=== PATIENT | female | born 2000 | race Caucasian/White ===

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

== ENCOUNTER 2018-01-20 12:44 | Outpatient (CLI) | END 2018-01-20 14:45 | disposition home or self-care (01) ==

== ENCOUNTER 2018-02-08 00:20 | Inpatient (IN) | END 2018-02-10 18:29 | disposition home or self-care (01) | DRG 775 ==

== ENCOUNTER 2018-07-28 05:48 | Emergency (ER) | payer MEDICAID ==
[~2018-07-28] VITALS: Ht 147.3 cm; Wt 42.5 kg
[~2018-07-28 05:48] MED LIST: CALC600T24 PO; PNV11TAB PO; PREN-93 PO
[2018-07-28 05:52] VITALS: Ht 147.3 cm; Wt 42.5 kg
[2018-07-28] MEDS ORDERED: IBUPROFEN 800 MG TAB PO ONE (06:30)
[2018-07-28 06:58] VITALS: BP 101/76; PULSE 66; RESP 15
[2018-07-28] MEDS ORDERED: NAPR-985 PO (07:48)
--- NOTE | 2018-07-28 13:16 | ERD ---
ER Documentation Chief Complaint Chief Complaint C/O MEDIAL BACK PAIN S/P SLIP AND FALL 5 DAYS AGO HPI 17-year-old female presenting with mid thoracic back pain after slip and fall on snow and ice 5 days ago. Patient has some pain with breathing. Denies any shortness of breath. Has not taken medications for symptoms. Denies any numbness or tingling to her arms or extremities. Denies other medical problems. NKDA. Surgical history denies. Social history denies ROS All systems reviewed and are negative except as per history of present illness. Medications Home Meds Active Scripts Naproxen* (Naprosyn*) 500 Mg Tablet, 500 MG PO BID PRN for PAIN AND/OR INFLAMMATION, #30 TAB Prov:ASHIA ERIC PA-C 07/28/18 Vit No.124/Iron/FA ( Vitamin Tablet) 1 Each Tablet, 1 EACH PO DAILY for 30 Days, TAB Prov:GINA APONTE MD 06/30/17 Reported Medications Calcium Carbonate* (Calcium Carbonate*) 600 MG Ca Tab, 600 MG PO DAILY, TAB 02/07/18 [id number] ( 19) 1 Each Tablet, 1 TAB PO DAILY, TAB 01/20/18 Allergies Allergies: Coded Allergies: No Known Allergy (Unverified , 02/07/18) PMhx/Soc Medical and Surgical Hx: pt denies Medical Hx, pt denies Surgical Hx History of Surgery: No Hx Neurological Disorder: No Hx Respiratory Disorders: No Hx Cardiac Disorders: No Hx Psychiatric Problems: No Hx Miscellaneous Medical Probl: No Hx Alcohol Use: No Hx Substance Use: No Hx Tobacco Use: No Smoking Status: Never smoker FmHx Family History: No diabetes, No coronary disease, No other Physical Exam Vitals Vital Signs Date Temp Pulse Resp B/P (MAP) Pulse Ox O2 O2 Flow FiO2 Time Delivery Rate 07/28/18 66 15 101/76 96 Room Air 06:58 (84) 07/28/18 98.7 74 19 119/71 98 05:52 (87) Physical Exam GENERAL: The patient is well-appearing, well-nourished, in no acute distress CHEST: Clear to auscultation bilaterally. There are no rales, wheezes or rhonchi. HEART: Regular rate and rhythm. No murmurs, clicks, rubs or gallops. BACK: No midline or flank tenderness. Tender palpation over mid thoracic with no bony step-offs felt along the midline spine. Results 24 hrs Current Medications Medications Dose Sig/Brad Start Time Status Last (Trade) Ordered Route PRN Stop Time Admin Dose Reason Admin Ibuprofen 800 mg ONCE ONCE 07/28/18 DC 07/28/18 (Motrin) PO 06:30 07/28/18 06:21 06:31 Procedures/MDM DIAGNOSTIC IMAGING REPORT Patient: RABIA HILL : 2000 Age: 17 Sex: F MR #: [id number] DOS: 07/28/18 0612 Ordering MD: ISABELLA ERIC PA-C Location: [facility] Room/Bed: PROCEDURE: XR thoracic Spine. CLINICAL INDICATION: back pain TECHNIQUE: AP, lateral and swimmer's views of the thoracic spine were obtained. COMPARISON: No prior studies are available for comparison. FINDINGS: There is normal vertebral mineralization and alignment. No acute fracture or subluxation is identified. Small anterior osteophytes are seen in the mid to lower thoracic spine. The soft tissues appear normal. IMPRESSION: Small anterior osteophytes are seen in the mid to lower thoracic spine. MDM: 17-year-old female presenting with back pain. I have low suspicion for acute fracture dislocation. I have low suspicion for tendon or ligament rupture. Patient has contusion and is treated with supportive medications. Patient is told symptoms change or worsen to return to the ER immediately. All questions answered at discharge Departure Diagnosis: Primary Impression: Back pain Condition: Stable Patient Instructions: Back Pain (Acute Or Chronic) Referrals: [facility] YOU HAVE RECEIVED A MEDICAL SCREENING EXAM AND THE RESULTS INDICATE THAT YOU DO NOT HAVE A CONDITION THAT REQUIRES URGENT TREATMENT IN THE EMERGENCY DEPARTMENT. FURTHER EVALUATION AND TREATMENT OF YOUR CONDITION CAN WAIT UNTIL YOU ARE SEEN IN YOUR DOCTORS OFFICE WITHIN THE NEXT 1-2 DAYS. IT IS YOUR RESPONSIBILITY TO MAKE AN APPOINTMENT FOR FOLOW-UP CARE. IF YOU HAVE A PRIMARY DOCTOR --you should call your primary doctor and schedule an appointment IF YOU DO NOT HAVE A PRIMARY DOCTOR YOU CAN CALL OUR PHYSICIAN REFERRAL HOTLINE AT IF YOU CAN NOT AFFORD TO SEE A PHYSICIAN YOU CAN CHOSE FROM THE FOLLOWING [facility] [address] [facility]. [facility] [address] [facility] [email or web address] [address] [facility] [address] [facility] [address] [facility]. [facility] [address] Additional Instructions: FOLLOW UP WITH YOUR PRIMARY CARE PHYSICIAN TOMORROW.Return to this facility if you are not improving as expected. ASHIA ERIC PA-C Jul 28, 2018 13:16
== END 2018-07-28 06:58 | disposition home or self-care (01) ==
LOC: FTE 05:48
DX: M54.5 Low back pain (principal)
CPT/HCPCS: 72072; Z7502; Z7610